=== PATIENT | female | born 1955 | race Caucasian/White ===

== ENCOUNTER 2021-11-25 12:36 | Outpatient (REF) | payer MEDICAID, SELFPAY ==
--- NOTE | ~2021-11-25 | XR_ITS ---
EXAMINATION: XR BOTH KNEES AP STANDING XR LEFT KNEE, 2 VIEWS CLINICAL INFORMATION: M25.569 - Pain in unspecified knee. COMPARISON: None. TECHNIQUE: Standing AP view of both knees and lateral and sunrise views of the left knee. FINDINGS: LEFT KNEE: Moderate medial compartment joint space narrowing with articular sclerosis, cortical irregularity, and marginal osteophytes. [id number] patellofemoral compartment osteoarthritis with joint space narrowing and marginal osteophytes. Lateral compartment appears relatively well preserved. No effusion. No fractures. Bone mineralization is normal. Soft tissues are unremarkable. RIGHT KNEE: Mild medial compartment osteoarthritis. Lateral compartment appears well preserved. No fracture or malalignment. Bone mineralization is normal. XR/XR knee standing BI IMPRESSION: Moderate left and mild right medial compartment osteoarthritis. [id number] patellofemoral compartment osteoarthritis in the left knee.
--- NOTE | ~2021-11-25 | XR_ITS ---
EXAMINATION: XR BOTH KNEES AP STANDING XR LEFT KNEE, 2 VIEWS CLINICAL INFORMATION: M25.569 - Pain in unspecified knee. COMPARISON: None. TECHNIQUE: Standing AP view of both knees and lateral and sunrise views of the left knee. FINDINGS: LEFT KNEE: Moderate medial compartment joint space narrowing with articular sclerosis, cortical irregularity, and marginal osteophytes. Plfw-et-nkyvigry patellofemoral compartment osteoarthritis with joint space narrowing and marginal osteophytes. Lateral compartment appears relatively well preserved. No effusion. No fractures. Bone mineralization is normal. Soft tissues are unremarkable. RIGHT KNEE: Mild medial compartment osteoarthritis. Lateral compartment appears well preserved. No fracture or malalignment. Bone mineralization is normal. XR/XR knee LT 2V IMPRESSION: Moderate left and mild right medial compartment osteoarthritis. Jcos-go-bfgohrlp patellofemoral compartment osteoarthritis in the left knee.
== END 2021-11-25 12:37 | disposition home or self-care (01) ==
LOC: HO.HOSX 12:36
PROVIDERS: Visit Provider Orthopaedic Surgery
DX: M17.0 Bilateral primary osteoarthritis of knee (principal); M32.9 Systemic lupus erythematosus, unspecified
CPT/HCPCS: 73560; 73565; 99202

== ENCOUNTER → 2022-01-27 14:28 | Outpatient (BNVA) | payer MEDICAID, SELFPAY | PROVIDERS: PCP Internal Medicine; Visit Provider Orthopaedic Surgery | DX: M17.12 Unilateral primary osteoarthritis, left knee (principal); M17.11 Unilateral primary osteoarthritis, right knee; M32.9 Systemic lupus erythematosus, unspecified | CPT/HCPCS: 99212; J1100 ==

== ENCOUNTER → 2022-02-19 12:50 | Outpatient (BNVA) | payer MEDICAID, SELFPAY | PROVIDERS: PCP Internal Medicine; Visit Provider Orthopaedic Surgery | DX: Z13.89 Encounter for screening for other disorder (principal) ==

== ENCOUNTER → 2022-03-13 13:54 | Outpatient (BNVA) | payer MEDICAID, SELFPAY | PROVIDERS: PCP Internal Medicine; Visit Provider Physician Assistant | DX: M17.12 Unilateral primary osteoarthritis, left knee (principal) | CPT/HCPCS: 20610; 99212 ==

== ENCOUNTER 2022-03-18 07:08 | Inpatient (IN) | payer MEDICAID, SELFPAY ==
[2022-03-04 12:32] VITALS: BP 144/83; PULSE 70; RESP 20; O2SAT 97; BMI 29.1
[2022-03-04 13:22] LABS: MANUAL DIFF FLAG NO
[2022-03-04 13:41] LABS: Basophils Percent Auto 0.8 % (0-2); Eosinophils Absolute Auto 0.1 X10*3/uL (0.0-0.4); Eosinophils Percent Auto 3.8 % (0-4); Hematocrit 38.1 % (37.0-47.0); Hemoglobin 12.8 g/dl (12.0-16.0); Lymphocytes Absolute Auto 0.9 X10*3/uL (1.2-4.9); Lymphocytes Percent Auto 35.2 % (20-40); Mean Corpuscular HGB Conc 33.6 g/dl (31.0-35.0); Mean Corpuscular Hemoglobin 30.1 pg (27.0-33.0); Mean Corpuscular Volume 89.6 fL (80.0-98.0); Mean Platelet Volume 9.4 fL (9.4-12.3); Monocytes Absolute Auto 0.3 X10*3/uL (0.1-1.2); Monocytes Percent Auto 11.9 % (2-11); Neutrophils Absolute Auto 1.3 x10*3/uL (2.0-8.3); Neutrophils Percent Auto 48.3 % (45-73); Platelet Count 191 X10*3/uL (160-400); Red Blood Count 4.25 X10*6/uL (4.20-5.50); White Blood Count 2.6 X10*3/uL (4.8-10.8)
[2022-03-04 15:00] LABS: MRSA Nasal PCR NEGATIVE (Negative); SA Nasal PCR POSITIVE (Negative)
[2022-03-04 15:24] LABS: Anion Gap 10 (12-20); Blood Urea Nitrogen 14 mg/dL (9-16); Calcium 9.5 mg/dL (8.4-10.2); Carbon Dioxide 29 mmol/L (22-29); Chloride 105 mmol/L (96-108); Creatinine Clr Calc Pharmacy 60.4; Estimated Glomerular Filt Rate 57; Glucose Random 82 mg/dL (60-115); Potassium 4.1 mmol/L (3.3-5.1); Sodium 140 mmol/L (135-145)
--- NOTE | 2022-03-17 09:12 | P.CONAN_ITS ---
Documented by User: Manda Mcwilliams NP 03/17/22 09:17 HPI - Anesthesia Eval Consult details Narrative: 66yo F for Left Knee Replacement Total PCP cleared Hydroxychloroquine for lupus Meloxicam daily PMFSH Active Problems Active Problems: All Active Problems (Updated 03/04/22 @ 12:24 by Brii Cunningham RN) Osteoarthritis of left knee (Acute) Osteoarthritis of right knee (Acute) Lupus (Acute) Past Medical History Medical History Acid reflux Anxiety and depression Hypertension Hypothyroidism Lupus PONV (postoperative nausea and vomiting) Surgical History Surgical History H/O breast surgery History of partial thyroidectomy Hx of foot surgery Social History Social History Are you a primary associate director career services to a significant other at home: No Do you presently have visiting nurse or other home services: No Patient Tobacco Use Status: Former Tobacco user Quit Date: Age 32 Tobacco use type: Cigarette Second Hand Smoke Exposure: No Use of substances other than those prescribed or required for medical reasons: No Have you been hit, kicked, punched, or otherwise hurt by someone within the past year? If so, by whom?: No Are you DNR?: No Advance Directives: No Advance Directives Information Provided: Yes () Advance Directives on File: No Recently lost weight without trying: No Eating poorly because of decreased appetite: No Nutrition Risks: No Nutritional Risk Patient : No Poor oral hygiene: No (intact teeth) Current occupational status: retired Meds Allergies Allergy/AdvReac Type Severity Reaction Status Date / Time Penicillins Allergy Intermediate Rash Verified 03/18/22 07:16 Home Medications Medication Instructions Recorded Confirmed Last Taken Type albuterol sulfate 90 mcg/actuation 2 puff inhalation Q4-6H PRN 11/25/21 03/18/22 02/15/22 History aerosol inhaler (ProAir HFA) Wheezing amitriptyline 10 mg tablet 10 mg PO DAILY 11/25/21 03/18/22 03/17/22 History hydroxychloroquine 200 mg tablet 200 mg PO DAILY 11/25/21 03/18/22 03/17/22 History levothyroxine 137 mcg tablet 137 mcg PO DAILY 11/25/21 03/18/22 03/18/22 00:30 History losartan 50 mg tablet 50 mg PO DAILY 11/25/21 03/18/22 03/18/22 00:30 History meloxicam 15 mg tablet 15 mg PO DAILY 11/25/21 03/18/22 03/13/22 History potassium chloride 10 mEq 20 meq PO DAILY 11/25/21 03/18/22 03/17/22 History capsule,extended release ropinirole 1 mg tablet 1 mg PO DAILY 11/25/21 02/19/22 03/17/22 History sertraline 100 mg tablet 100 mg PO DAILY 11/25/21 03/18/22 03/17/22 History aspirin 81 mg chewable tablet 81 mg PO DAILY 02/27/22 03/18/22 03/13/22 History fluticasone propionate 110 1 puff inhalation BID 02/27/22 03/18/22 02/15/22 History mcg/actuation HFA aerosol inhaler multivitamin with minerals (One 1 tab PO DAILY 02/27/22 03/18/22 03/17/22 History Daily Complete tablet) verapamil 180 mg tablet,extended 180 mg PO DAILY 02/27/22 03/17/22 History release omeprazole 40 mg capsule,delayed 1 cap PO DAILY 03/18/22 03/18/22 Unknown History release Exam Exam Date and Time: March 17, 2022911 Height,Weight and Vital Signs: Height 5 ft 5 in Weight 79.379 kg Last Vital Signs Pulse 70 03/04/22 12:32 Resp 20 03/04/22 12:32 BP 144/83 H 03/04/22 12:32 Pulse Ox 97 03/04/22 12:32 O2 Del Method 03/04/22 12:32 Pertinent Lab Results Pertinent Lab Results: Laboratory Tests 03/04/22 03/04/22 03/04/22 13:19 13:19 Unknown WBC 2.6 L RBC 4.25 Hgb 12.8 Hct 38.1 MCV 89.6 MCH 30.1 MCHC 33.6 RDW 13.0 Plt Count 191 MPV 9.4 Immature Gran % (Auto) 0.0 Neut % (Auto) 48.3 Lymph % (Auto) 35.2 Bacon % (Auto) 11.9 H Eos % (Auto) 3.8 Baso % (Auto) 0.8 Lymph # (Auto) 0.9 L Bacon # (Auto) 0.3 Eos # (Auto) 0.1 Baso # (Auto) 0.0 Abs Immat Gran (auto) 0.00 Absolute Neuts (auto) 1.3 L Absolute Nucleated RBC 0.000 Nucleated RBC % (auto) 0.0 Sodium 140 Potassium 4.1 Chloride 105 Carbon Dioxide 29 Anion Gap 10 L BUN 14 Creatinine 0.98 Estim Creat Clear Calc 60.4 Estimated GFR 57 Random Glucose 82 Calcium 9.5 Nasal Screen MRSA (PCR) NEGATIVE Nasal S. aureus Screen POSITIVE A Nasal MRSA/S.aureus Interp SEE NOTE Narrative Narrative: EKG 02/2022 SR Horizontal axis Assessment and Plan Assessment Anesthesia Assessment: Chart Reviewed Documented by User: Reymundo Moody MD 03/18/22 10:10 [facility] Past Medical History Medical History Acid reflux Anxiety and depression Hypertension Hypothyroidism Lupus PONV (postoperative nausea and vomiting) Family History Family history of problems with anesthesia: No Surgical History Surgical History H/O breast surgery History of partial thyroidectomy Hx of foot surgery History of Problems with Anesthesia: No Social History Social History Are you a primary associate director career services to a significant other at home: No Do you presently have visiting nurse or other home services: No Patient Tobacco Use Status: Former Tobacco user Quit Date: Age 32 Tobacco use type: Cigarette Second Hand Smoke Exposure: No Use of substances other than those prescribed or required for medical reasons: No Have you been hit, kicked, punched, or otherwise hurt by someone within the past year? If so, by whom?: No Are you DNR?: No Advance Directives: No Advance Directives Information Provided: Yes () Advance Directives on File: No Recently lost weight without trying: No Eating poorly because of decreased appetite: No Nutrition Risks: No Nutritional Risk Patient : No Poor oral hygiene: No (intact teeth) Current occupational status: retired Meds Allergies Allergy/AdvReac Type Severity Reaction Status Date / Time Penicillins Allergy Intermediate Rash Verified 03/18/22 07:16 Home Medications Medication Instructions Recorded Confirmed Last Taken Type albuterol sulfate 90 mcg/actuation 2 puff inhalation Q4-6H PRN 11/25/21 03/18/22 02/15/22 History aerosol inhaler (ProAir HFA) Wheezing amitriptyline 10 mg tablet 10 mg PO DAILY 11/25/21 03/18/22 03/17/22 History hydroxychloroquine 200 mg tablet 200 mg PO DAILY 11/25/21 03/18/22 03/17/22 Hi story levothyroxine 137 mcg tablet 137 mcg PO DAILY 11/25/21 03/18/22 03/18/22 00:30 History losartan 50 mg tablet 50 mg PO DAILY 11/25/21 03/18/22 03/18/22 00:30 History meloxicam 15 mg tablet 15 mg PO DAILY 11/25/21 03/18/22 03/13/22 History potassium chloride 10 mEq 20 meq PO DAILY 11/25/21 03/18/22 03/17/22 History capsule,extended release ropinirole 1 mg tablet 1 mg PO DAILY 11/25/21 02/19/22 03/17/22 History sertraline 100 mg tablet 100 mg PO DAILY 11/25/21 03/18/22 03/17/22 History aspirin 81 mg chewable tablet 81 mg PO DAILY 02/27/22 03/18/22 03/13/22 History fluticasone propionate 110 1 puff inhalation BID 02/27/22 03/18/22 02/15/22 History mcg/actuation HFA aerosol inhaler multivitamin with minerals (One 1 tab PO DAILY 02/27/22 03/18/22 03/17/22 Hist ory Daily Complete tablet) verapamil 180 mg tablet,extended 180 mg PO DAILY 02/27/22 03/17/22 History release omeprazole 40 mg capsule,delayed 1 cap PO DAILY 03/18/22 03/18/22 Unknown History release Exam Airway Mallampati Class: II TM Dist: >3cm Neck ROM: Full Loose/Missing/Broken Teeth: No Heart: rrr Lungs: cta Assessment and Plan Final Anesthetic Review Family History of Problems with Anesthesia: No History of Problems with Anesthesia: No NPO: Yes ASA Class: II Final Preanesthetic Review: No Changes in Pt Med Stat, Meds/Allgs Chart Reviewed, Consent Obtained/Reviewed and Anes Risks/Benef Reviewed Patient Risk: Intermediate Procedure Risk: Intermediate Anesthetic Plan Anesthetic Plan: MAC:, Spinal and Regional Block Disposition: Standard PACU
[2022-03-18] VITALS (15 sets, daily range): BP systolic 118–196; BP diastolic 73–97; PULSE 52–67; RESP 12–18; TEMP 36.2–37.1; O2SAT 96–100
--- NOTE | ~2022-03-18 | XR_ITS ---
EXAMINATION: XR KNEE, LEFT CLINICAL INFORMATION: Left total knee arthroplasty COMPARISON: Left knee radiographs 11/25/2021 TECHNIQUE: AP and crosstable lateral views left knee of the left knee. FINDINGS: Interval total knee arthroplasty. No periprosthetic fracture or dislocation. Expected postoperative soft tissue gas and anterior skin terese. Enthesophyte formation at the superior patellar pole noted. XR/XR knee LT 2V IMPRESSION: Status post total knee arthroplasty. No periprosthetic fracture or dislocation.
--- OUTSIDE RECORDS SUMMARY | 2022-03-18 07:14 | XMS_ITS | Continuity of Care Document ---
:1955 Author Organization [facility] Address [address] [place] [address]- Care Team Providers Name Role Phone Martine Song MD [id number] [address] [place] [id number] Attending Physician: Maci ALLAN, Leda Wiggins Admitting Physician: Maci ALLAN, Leda Wiggins Referring Physician: Heath Sanchez MD Allergies, Adverse Reactions, Alerts Substance Reaction Severity Status penicillin itch Severe Active rash Medications amitriptyline 10 mg oral tablet 10 mg, 1, tablet, By Mouth, Daily at bedtime, # 180 tablet, Refills 0, Maintenance, 05/17/19 8:35:00EDT Start Date: 05/17/19 Status: OrderedamLODIPine 5 mg oral tablet 5 mg, 1, tablet, By Mouth, Daily, # 90 tablet, Refills 0, Maintenance, 05/17/19 8:36:00 EDT Start Date: 05/17/19 Status: Orderedaspirin 81 mg oral delayed release tablet 81 mg, 1, tablet, By Mouth, Daily, # 30 tablet, Refills 0, Maintenance, 05/17/19 8:36:00 EDT Start Date: 05/17/19 Status: Orderedatorvastatin 20 mg oral tablet 1 tablet = 20 mg, By Mouth, Daily, # 30 tablet, 0 Refills, Maintenance, 05/17/19 8:37:00 EDT, Tablet Start Date: 05/17/19 Status: Orderedcitalopram 40 mg oral tablet 40 mg, 1, tablet, By Mouth, Daily, # 30 tablet, Refills 0, Maintenance, 05/17/19 8:38:00 EDT Start Date: 05/17/19 Status: OrderedHydrochlorothiazide 25 mg / Spironolactone 25 mg Tablet 1 tablet, By Mouth, Daily, 0 Refills, Maintenance, 05/17/19 8:39:00 EDT, Tablet Start Date: 05/17/19 Status: Orderedhydroxychloroquine 200 mg oral tablet 200 mg, 1, tablet, By Mouth, Daily, # 180 tablet, Refills 0, Maintenance, 05/17/19 8:39:00 EDT Start Date: 05/17/19 Status: OrderedLevoxyl 0.137 mg oral tablet See Instructions, 1 tablet By Mouth Daily except thursday take 1.5 tablet by mouth daily, 0 Refills, Maintenance, 05/17/19 8:40:00 EDT, Tablet Start Date: 05/17/19 Status: OrderedLisinopril = 5 mg, By Mouth, Daily, 0 Refills, Maintenance, 05/19/14 11:51:19 EDT Start Date: 05/19/14 Status: OrderedLysine = 500 mg, By Mouth, 2 times a day, 0 Refills, Maintenance, 05/19/14 11:51:25 EDT Start Date: 05/19/14 Status: Orderedmeloxicam 15 mg oral tablet 1 tablet = 15 mg, By Mouth, Daily, # 30 tablet, 0 Refills, Maintenance, 05/17/19 8:42:00 EDT, Tablet Start Date: 05/17/19 Status: OrderedMiraLax oral powder for reconstitution = 17 Gm, By Mouth, Daily, PRN Constipation, dissolve in water before taking, # 255 Gm, 0 Refills, Maintenance, 05/17/19 8:42:00 EDT, REC Powder Start Date: 05/17/19 Status: Orderedomeprazole 20 mg oral delayed release tablet 1 tablet = 20 mg, By Mouth, Daily at bedtime, # 90 tablet, 0 Refills, Maintenance, 05/17/19 8:44:00 EDT, CR Tablet Start Date: 05/17/19 Status: Orderedpotassium chloride 10 mEq oral capsule, extended release 1 capsule = 10 mEq, By Mouth, 2 times a day, # 60 capsule, 0 Refills, Maintenance, 05/17/19 8:43:00 EDT, CR Capsule Start Date: 05/17/19 Status: OrderedrOPINIRole 1 mg oral tablet 1 tablet = 1 mg, By Mouth, Daily at bedtime, # 270 tablet, 0 Refills, Maintenance, 05/17/19 8:44:00 EDT, Tablet Start Date: 05/17/19 Status: Orderedverapamil 100 mg oral capsule, extended release 1 capsule = 100 mg, By Mouth, Daily at bedtime, # 30 capsule, 0 Refills, Maintenance, 05/17/19 8:43:00 EDT, CR Capsule Start Date: 05/17/19 Status: Ordered Problem List Condition Effective Dates Status Health Status Informant Atrophic vaginitis(Confirmed) Active Dyspareunia(Confirmed) Active Hypertension(Confirmed) Active Hypothyroidism(Confirmed) Active Change in bowel function(Confirmed) 05/22/14 Active Overweight(Confirmed) Active Raynaud's syndrome(Confirmed) Active Sjogrens syndrome(Confirmed) Active SLE - Systemic lupus Active erythematosus(Confirmed) Varicella(Confirmed) Active Social History Social History Type Response Smoking Status Former smoker; Other: Quit 4 2 yrs ago; entered on: 05/19/14 Sex
--- OUTSIDE RECORDS SUMMARY | 2022-03-18 07:14 | XMS_ITS | Continuity of Care Document ---
:1955 Author Organization [facility] Address [address] [place] [id number]- Care Team Providers Name Role Phone Martine Song MD Primary Care Physician Encounter [facility] Date(s): 07/04/20 - 08/03/20 [facility] [address] [place] [id number] Attending Physician: Javan Ernst Admitting Physician: AdmtrJavan Referring Physician: Admtr, Javan Allergies, Adverse Reactions, Alerts Substance Reaction Severity [...]
--- OUTSIDE RECORDS SUMMARY | 2022-03-18 07:14 | XMS_ITS | Continuity of Care Document ---
:1955 Author Organization [facility] pt Address [address] [place] [address]- Care Team Providers Name Role Phone Martine Song MD Primary Care Physician Encounter [facility] Date(s): 12/18/21 - 12/25/21 [facility] [address] [place] [address]- Attending Physician: Not on Staff, Attending MD Referring Physician: Martine Song MD Allergies, Adverse Reactions, Alerts Substance Reaction Severity Status penicillin itch Severe Active rash Medications aspirin 81 mg oral delayed release tablet 81 mg, 1, tablet, By Mouth, Daily, # 30 tablet, Refills 0, Maintenance, 05/17/19 8:36:00 EDT Start Date: 05/17/19 Status: OrderedEstring 2 mg vaginal ring 1 each = 2 mg, Vaginally, Every 3 months, # 1 each, 0 Refills, Maintenance, 10/15/21 15:05:00 EDT, [facility]/pharmacy #[id number], Partial fill upon patient request if the prescription is for a schedule II opioid drug., 165, cm, 10/15/21 14:20:00 EDT, Height, 78.... Start Date: 10/15/21 Status: Orderedhydroxychloroquine 200 mg oral tablet 200 mg, 1, tablet, By Mouth, Daily, # 180 tablet, Refills 0, Maintenance, 05/17/19 8:39:00 EDT Start Date: 05/17/19 Status: OrderedLevoxyl 0.137 mg oral tablet See Instructions, 1 tablet By Mouth Daily except thursday take 1.5 tablet by mouth daily, 0 Refills, Maintenance, 05/17/19 8:40:00 EDT, Tablet Start Date: 05/17/19 Status: OrderedLosartan By Mouth, Daily, 0 Refills, Maintenance, 10/15/21 14:25:00 EDT, Partial fill upon patient request ifthe prescription is for a schedule II opioid drug. Start Date: 10/15/21 Status: Orderedomeprazole 20 mg oral delayed release tablet 1 tablet = 20 mg, By Mouth, Daily at bedtime, # 90 tablet, 0 Refills, Maintenance, 05/17/19 8:44:00 EDT, CR Tablet Start Date: 05/17/19 Status: OrderedrOPINIRole 1 mg oral tablet 1 tablet = 1 mg, By Mouth, Daily at bedtime, # 270 tablet, 0 Refills, Maintenance, 05/17/19 8:44:00 EDT, Tablet Start Date: 05/17/19 Status: OrderedSertraline By Mouth, Daily, 0 Refills, Maintenance, 10/15/21 14:28:00 EDT, Partial fill upon patient request ifthe prescription is for a schedule II opioid drug. Start Date: 10/15/21 Status: Ordered Problem List Condition Confirmation Course Effective Dates Status Health I nformant Status Atrophic vaginitis Confirmed Active Dyspareunia Confirmed Active Hypertension Confirmed Active Hypothyroidism Confirmed Active Change in bowel Confirmed 05/22/14 Active function Overweight Confirmed Active Raynaud's syndrome Confirmed Active Sjogrens syndrome Confirmed Active SLE - Systemic lupus Confirmed Active erythematosus Varicella Confirmed Active Vital Signs Most recent to oldest [Reference Range]: 1 Height 165 cm (12/18/21 5:39 PM) Oxygen Saturation [94-100 %] 98 % (12/18/21 5:39 PM) Pulse Rate [55-90 bpm] 73 bpm (12/18/21 5:39 PM) Blood Pressure [90-138/55-84 mm Hg] 151/90 mm Hg *H* (12/18/21 5:39 PM) Respiratory Rate [16-30 br/min] 16 br/min (12/18/21 5:39 PM) Temperature [96.8-100.4 DegF] 97.8 DegF (12/18/21 5:39 PM) Mode of Delivery (Oxygen) Room air (12/18/21 5:39 PM) Blood pressure sites Arm, left (12/18/21 5:39 PM) Temperature Route Temporal (12/18/21 5:39 PM) Social History Social History Type Response Smoking Status Former smoker; Other: Quit 4 2 yrs ago; entered on: 05/19/14 Sex Patient Care team information PersonnelName: Martine Song MD Address: Address: [address] [place] [id number]
--- OUTSIDE RECORDS SUMMARY | 2022-03-18 07:14 | XMS_ITS | Continuity of Care Document ---
:1955 Author Organization [facility] Address [address] [place] [address]- Care Team Providers Name Role Phone Martine Song MD [id number] - 10/06/21 [facility] [address] [place] [address]- Attending Physician: Tomasa Leyva MD Referring Physician: Martine Song MD Allergies, [...]
--- OUTSIDE RECORDS SUMMARY | 2022-03-18 07:14 | XMS_ITS | Continuity of Care Document ---
:1955 Author Organization [facility] Address [address] [place] [address]- Care Team Providers Name Role Phone Martine Song MD Primary Care Physician Encounter [facility] Date(s): 11/05/21 - 11/12/21 [facility] [address] [place] [id number] Attending Physician: Not on Staff, Attending MD Allergies, Adverse Reactions, Alerts Substance Reaction [...] each, 0 Refills, Maintenance, 10/15/21 15:05:00 EDT, [facility]pharmacy #[id number], Partial fill upon patient request if [...] Date: 10/15/21 Status: Ordered Problem List Condition Effective Dates Status Health Status Informant Atrophic vaginitis(Confirmed) Active Dyspareunia(Confirmed) Active Hypertension(Confirmed) Active Hypothyroidism(Confirmed) Active Change in bowel function(Confirmed) 05/22/14 Active Overweight(Confirmed) Active Raynaud's syndrome(Confirmed) Active Sjogrens syndrome(Confirmed) Active SLE - Systemic lupus Active erythematosus(Confirmed) Varicella(Confirmed) Active Social History Social History Type Response Smoking Status Former smoker; Other: Quit 4 2 yrs ago; entered on: 05/19/14 Sex Care Team PersonnelName: Martine Song MD Address: [address] [place] [id number]
--- OUTSIDE RECORDS SUMMARY | 2022-03-18 07:14 | XMS_ITS | Continuity of Care Document ---
:1955 Author Organization [facility] Address [address] [address]- Care Team Providers Name Role Phone Martine Song MD Primary Care Phys[id number] Date[facility]s): 10/23/21 - 11/22/[address] [id number] Allergies, Adverse Reactions, Alerts Substance Reaction Severity [...] each, 0 Refills, Maintenance, 10/15/21 15:05:00 EDT, [facility]/pharmacy #[id number], Partial fill upon patient request if [...] Care Team PersonnelName: Martine Song MD Address: [address] [place] [id number]-
--- OUTSIDE RECORDS SUMMARY | 2022-03-18 07:14 | XMS_ITS | Continuity of Care Document ---
:1955 Author Organization [facility] Address [address] [place] [id number]- Care Team Providers Name Role Phone Martine Song MD Primary Care Physician Encounter [facility] Date(s): 05/03/20 - 06/02/[address] [address]- Attending Physician: Javan Ernst Admitting Physician: AdmtrJavan Referring Physician: AdmtrJavan Allergies, Adverse Reactions, Alerts Substance Reaction Severity [...]
--- OUTSIDE RECORDS SUMMARY | 2022-03-18 07:14 | XMS_ITS | Continuity of Care Document ---
:1955 Author Organization [facility] n Address [address] [place] [id number]- Care Team Providers Name Role Phone Martine Song MD Primary Care Physician Encounter [facility] Date(s): 02/19/21 - 03/21/21 [facility] [address] [address]- Attending Physician: Javan Ernst Admitting Physician: Javan Ernst Referring Physician: AdmtrJavan Allergies, Adverse Reactions, Alerts [...]
--- OUTSIDE RECORDS SUMMARY | 2022-03-18 07:14 | XMS_ITS | Continuity of Care Document ---
:1955 Author Organization [facility] Address [address] [place] [address], [address] [place] [phone]- Care Team Providers Name Role Phone Martine Song MD Primary Care Physician [id number] Date(s): 11/06/21 - 12/06/21 [facility] [address] [place] [address], [address] [place] [id number] Allergies, Adverse Reactions, Alerts Substance Reaction [...] 0 Refills, Maintenance, 10/15/21 15:05:00 EDT, [facility]/pharmacy #[id number], Partial fill upon patient request if [...] lupus Confirmed Active erythematosus Varicella Confirmed Active Social History Social History Type Response Smoking Status Former smoker; Other: Quit 4 2 yrs ago; entered on: 05/19/14 Sex Patient Care team information PersonnelName: Martine Song MD Address: Address: [address] [place] [address], [place] [address]
--- OUTSIDE RECORDS SUMMARY | 2022-03-18 07:14 | XMS_ITS | Continuity of Care Document ---
:1955 Author Organization [facility] Address [address] [place] [address]- Care Team Providers Name Role Phone Duncan LONDONO, Martine Primary Care Physician Encounter [facility] Date(s): 09/06/21 - 10/06/21 [facility] [address] [place], [place] [address] Allergies, Adverse Reactions, Alerts Substance Reaction [...]
--- OUTSIDE RECORDS SUMMARY | 2022-03-18 07:14 | XMS_ITS | Continuity of Care Document ---
:1955 Author Organization [facility] Address [address] [place] [address]- Care Team Providers Name Role Phone Martine Song MD Primary Care Physician En[place] [facility] [facility] [id number] Date(s): 12/25/21 - 01/24/22 [facility] [address], [place] [address] Attending Physician: Javan Ernst Admitting Physician: Javan [...] each, 0 Refills, Maintenance, 10/15/21 15:05:00 EDT, [facility]/pharmacy #[id number], Partial fill upon patient request if [...] 2 yrs ago; entered on: 05/19/14 Sex Note Event Display: Non BH Lab Results Authored Date: Event Display: MM Mammogram, Non- BH Authored Date: Event Display: Non BH Lab Results Authored Date: Event Display: Non BH Lab Results Authored Date: Patient Care team information Care Team PersonnelName: Martine Song MD Position: [facility] General Pediatrics MD Member Role: PCP Address: Address: [address] [place] [address]- Care Team Related PersonsName: TATO BECERRAY Address: home [address] [place] [id number]
--- OUTSIDE RECORDS SUMMARY | 2022-03-18 07:14 | XMS_ITS | Continuity of Care Document ---
:1955 Author Organization [facility] Address [address] [place] [address]- Care Team Providers Name Role Phone Martine Song MD Primary Care Physician [facility] [id number] Date(s): 05/04/19 - 05/14/19 [id number] [address] [place] Attending Physician: Javan Ernst Admitting Physician: Javan Ernst Referring Physician: Javan Ernst Allergies, Adverse Reactions, Alerts Substance Reaction Severity Status penicillin itch Severe Active rash Medications levothyroxine 0.112 mg oral tablet 1 tablet = 112 mcg, By Mouth, Daily, # 30 tablet, 0 Refills, Maintenance, 09/01/14 10:07:41, Tablet Start Date: 09/01/14 Status: OrderedLisinopril By Mouth, Daily, 0 Refills, Maintenance, 05/19/14 11:51:19 Start Date: 05/19/14 Status: OrderedLysine = 1,000 mg, By Mouth, Daily, 0 Refills, Maintenance, 05/19/14 11:51:25 Start Date: 05/19/14 Status: OrderedPlaquenil Sulfate 200 mg oral tablet 1 tablet = 200 mg, By Mouth, 2 times a day, 0 Refills, Maintenance Start Date: 03/21/11 Status: OrderedRestasis 0.05% ophthalmic emulsion 1 drops, Eyes, Both, Every 12 hours, 0 Refills, Maintenance, 05/19/14 11:51:41 Start Date: 05/19/14 Status: OrderedVagifem 10 mcg vaginal tablet See Instructions, vaginally at bedtime twice a week, # 25 tablet, 3 Refills, Maintenance, 01/23/15 11:48:11, vaginally at bedtime twice a week Start Date: 01/23/15 Status: Ordered Problem List Condition Effective Dates [...]
--- OUTSIDE RECORDS SUMMARY | 2022-03-18 07:14 | XMS_ITS | Continuity of Care Document ---
:1955 Author Organization [facility] Address [address] [place] [address]- Care Team Providers Name Role Phone Martine Song MD Primary Care Physician Encounter [facility] [place] Date(s): 03/08/21 - 04/07/21 [facility] [address] [place] [address]- Attending Physician: Javan Ernst Admitting Physician: Javan [...]
--- OUTSIDE RECORDS SUMMARY | 2022-03-18 07:14 | XMS_ITS | Continuity of Care Document ---
:1955 Author Organization [facility] Address [address] [place] [address]- Care Team Providers Name Role Phone Martine Song MD Primary Care Physician [place] [facility] [place] 01/15/21 - 03/16/[address] [address]- Attending Physician: Heath Sanchez MD Admitting Physician: Heath Sanchez MD Referring Physician: Heath Sanchez MD Allergies, Adverse [...]
--- OUTSIDE RECORDS SUMMARY | 2022-03-18 07:14 | XMS_ITS | Continuity of Care Document ---
:1955 Author Organization [facility] Address [address] [place] [address]- Care Team Providers Name Role Phone Martine Song MD Primary Care Physician [place] [facility] [place] 05/17/19 - 05/27/[address] [address]- [facility] Attending Physician: Javan Ernst Admitting Physician: Javan [...]
--- OUTSIDE RECORDS SUMMARY | 2022-03-18 07:14 | XMS_ITS | Continuity of Care Document ---
:1955 Author Organization [facility] Address [address] [place] [address]- Care Team Providers Name Role Phone Duncan LONDONO, Martine Primary Care Physician Encounter [facility] [place] Date(s): 11/05/21 - 12/05/21 [facility] [address] [place] [address] Attending Physician: Javan Ernst Admitting Physician: Javan Ernst Referring Physician: Admtr, ArAndrey Allergies, Adverse Reactions, Alerts Substance Reaction Severity [...] information PersonnelName: Martine Song MD Address: Address: [address] [place] [address]-
--- OUTSIDE RECORDS SUMMARY | 2022-03-18 07:14 | XMS_ITS | Continuity of Care Document ---
:1955 Author Organization [facility] Address [address] [place] [address]- Care Team Providers Name Role Phone Martine Song MD Primary Care Physician Encounter [facility] [place] Date(s): 12/23/21 - 01/22/22 [facility] [address] [place], [place] [address] Allergies, Adverse Reactions, Alerts Substance Reaction Severity [...] each, 0 Refills, Maintenance, 10/15/21 15:05:00 EDT, [facility]/pharmacy #[id number], Partial fill upon [...] on: 05/19/14 Sex Patient Care team information Care Team PersonnelName: Martine Song MD Position: [facility] General Pediatrics MD Member Role: PCP Address: Address: [address] [place] [address]- Care Team Related PersonsName: ALEJANDRO BECERRA Address: home [address] [place] [address]
--- OUTSIDE RECORDS SUMMARY | 2022-03-18 07:14 | XMS_ITS | Continuity of Care Document ---
:1955 Author Organization [facility] Address [address] [place] [address]- Care Team Providers Name Role Phone Martine Song MD Primary Care Physician [id number] Date(s[facility] 10/15/21 - 10/22/21 [facility] [address] [place], [place] [address] Attending Physician: Amparo Potts MD Allergies, Adverse Reactions, Alerts Substance Reaction [...] - Systemic lupus Active erythematosus(Confirmed) Varicella(Confirmed) Active Vital Signs Most recent to oldest [Reference Range]: 1 Height 165 cm (10/15/21 2:20 PM) Weight 78.7 kg (10/15/21 2:20 PM) Body Mass Index [18.5-24.99] 28.91 *H* (10/15/21 2:20 PM) Blood Pressure [90-138/55-84 mm Hg] 140/80 mm Hg *H* (10/15/21 2:20 PM) Blood pressure sites Arm, right (10/15/21 2:20 PM) Dry Weight 78.7 kg (10/15/21 2:20 PM) Weight Obtained Via Standing scale (10/15/21 2:20 PM) Dry Weight Obtained Via Standing scale (10/15/21 2:20 PM) Social History Social History Type Response Smoking Status Former smoker; Other: Quit 4 2 yrs ago; entered on: 05/19/14 Sex
--- OUTSIDE RECORDS SUMMARY | 2022-03-18 07:14 | XMS_ITS | Continuity of Care Document ---
:1955 Author Organization [facility] Address [address] [address]- Care Team Providers Name Role Phone Martine Sogn MD Primary Care Physician Encounter [facility] [place] Date(s): 07/02/20 - 08/01/20 [facility] [address] [address]- Attending Physician: Javan Ernst Admitting Physician: AdmtrJavan [...]
--- OUTSIDE RECORDS SUMMARY | 2022-03-18 07:14 | XMS_ITS | Continuity of Care Document ---
:1955 Author Organization [facility] Address [address] [place] [address]- Care Team Providers Name Role Phone Martine Song MD Primary Care Physician Encounter [facility] [place] Date(s): 03/08/19 - 06/29/[address] [address]- [facility] Attending Physician: Heath Sanchez MD Referring Physician: Heath [...]
--- OUTSIDE RECORDS SUMMARY | 2022-03-18 07:14 | XMS_ITS | Continuity of Care Document ---
:1955 Author Organization [facility] Address [address] [place] [address]- Care Team Providers Name Role Phone Martine Song MD Primary Care Physician Encounter [facility] [place] Date(s): 03/08/21 - 03/15/21 [facility] [address] [place] [address]- Attending Physician: Danis Puente DO Referring Physician: Martine Song MD Allergies, Adverse [...]
--- OUTSIDE RECORDS SUMMARY | 2022-03-18 07:14 | XMS_ITS | Continuity of Care Document ---
:1955 Author Organization [facility] Address [address] [place] [address]- Care Team Providers Name Role Phone Martine Song MD Primary Care Physician Encounter [facility] [place] Date(s): 04/30/20 - 05/30/20 [facility] [address] [place] [address] Attending Physician: Javan Ernst Admitting Physician: AdmtrJavan [...]
--- OUTSIDE RECORDS SUMMARY | 2022-03-18 07:14 | XMS_ITS | Continuity of Care Document ---
:1955 Author Organization [facility] Address [address] [place] [address]- Care Team Providers Name Role Phone Martine Song MD Primary Care Physician Encounter [facility] [place] Date(s): 01/14/21 - 03/15/[address] [address]- Attending Physician: Heath Sanchez MD Referring Physician: [...]
--- OUTSIDE RECORDS SUMMARY | 2022-03-18 07:15 | XMS_ITS | Continuity of Care Document ---
:1955 Author Organization [facility] Address [address] [place] [address]- Care Team Providers Name Role Phone Martine Song MD Primary Care Physician Encounter [facility] [place] Date(s): 02/14/21 - 03/16/[address] [address]- Attending Physician: Admlore, Javan Admitting Physician: AdmtrJavan Referring Physician: Admtr, ArAndrey Allergies, Adverse Reactions, [...]
--- OUTSIDE RECORDS SUMMARY | 2022-03-18 07:15 | XMS_ITS | Continuity of Care Document ---
:1955 Author Organization [facility] Address [address] [place] [address]- Care Team Providers Name Role Phone Martine Song MD Primary Care Physician Encounter [facility] [place] Date(s): 01/22/21 - 01/29/21 [id number], [place] [address]- Attending Physician: Heath Sanchez MD Admitting Physician: [...]
--- OUTSIDE RECORDS SUMMARY | 2022-03-18 07:15 | XMS_ITS | Continuity of Care Document ---
:1955 Author Organization [facility] Address [address] [place] [address]- Care Team Providers Name Role Phone Martine Song MD Primary Care Physician Encounter [facility] [place] Date(s): 01/19/21 - 03/20/21 [facility] [address] [place] [address] Attending Physician: Alice Altman MD Admitting Physician: Alice Altman MD Referring Physician: Heath Sanchez MD Allergies, [...]
[2022-03-18 07:36] LABS: Hematocrit 37.9 % (37.0-47.0); Hemoglobin 12.9 g/dl (12.0-16.0)
[2022-03-18] MEDS: Lactated Ringers 1,000 ML 100 ML IVCONT ×2 (08:05→14:04)
[2022-03-18 08:07] LABS: COVID-19 Test Negative (Negative); IDNOW Serial# BCCEAD1C
--- NOTE | 2022-03-18 09:10 | MHC.SHP ---
Pre-Procedural Eval Section A Date of Service: 03/18/22 The patient is an INPATIENT: No Changes since office visit: No Cold of Flu in the past 2 weeks, No New Medical Problems, No Changes in Medication and No Patient answered all questions The History & Physical has been completed within 30 days and I have reviewed it.: Yes Section B Chief Complaint: LT TKA Allergies: Allergies Allergy/AdvReac Type Severity Reaction Status Date / Time Penicillins Allergy Intermediate Rash Verified 03/18/22 07:16 Plan I have reviewed the history and physical and performed a pertinent physical examination on my patient. No changes have occurred unless specified. Time Spent With Patient Time: Total time managing care of this patient today ____ minutes.
--- NOTE | 2022-03-18 10:53 | PM.OP ---
Brief Operative Note Date of Service: 03/18/22 Pre-op diagnosis: Left knee OA Post-op diagnosis: same Procedure: Left TKA Implants: Lucille Triathlon press fit cruciate retaining Surgeon: Steve Castro MD Anesthesia: regional and spinal Was an Ship Boat Or Barge Mate used for this Procedure?: Yes Ship Boat Or Barge Mate: Melissa Stubbs Estimated blood loss (mL): 150 IV fluids (mL): 1,000 Pathology: other Condition: stable Disposition: PACU
--- NOTE | 2022-03-18 10:58 | W.PM.OPN ---
Operative Note Operative Note Date of Service: 03/18/22 Narrative: Date of Service: 03/18/22 Pre-op diagnosis: Left knee OA Post-op diagnosis: same Procedure: Left TKA Implants: Lucille Triathlon press fit cruciate retaining 05/10/9cr/32a Surgeon: Steve Castro MD Anesthesia: regional and spinal Was an Plate And Frame Filter Operator used for this Procedure?: Yes Plate And Frame Filter Operator: Melissa Stubbs Estimated blood loss (mL): 150 IV fluids (mL): 1,000 Pathology: other Condition: stable Disposition: PACU Procedure in detail: The patient was brought to the operating room and prepped and draped in standard sterile fashion. A time-out was called to identify proper site proper procedure proper surgeon and IV antibiotics were administered. 1 g of IV tranexamic acid was administered. I began by making a midline incision to the retinaculum and performed a medial parapatellar arthrotomy. The patella was translated laterally and the knee was flexed up. The medial compartment was eburnated . I performed a small medial peel and resected the infrapatellar fat pad. Kandis's line was then used to drill my intramedullary femoral guide and my distal femur cut of 11 mm( 5 deg flexion contracture) was made in 5 degrees of valgus while protecting the soft tissues. I then measured a # 3 femur and placed my cutting guide in 3 deg ER and made my anterior posterior and chamfer cuts protecting the soft tissues at all times. Once I was satisfied with my cuts I turned my attention to the tibia. I removed the meniscus medially and laterally and , using an external cutting guide, in line with the tibial crest and the third ray, I made my distal tibial cut in 3 deg slope of while protecting the PCL the posterior soft tissues at all times. An extension block was used to confirm appropriate amount of bony resection. I then sized a #4 tibia and once I was satisfied that there was complete tibial coverage I placed my trial and with the trial femur in place took the knee through range of motion. I was satisfied with the extension and flexion as well as the stability and balance at 0, 30 and 90 degrees. I then turned my attention to the patella where I removed 1 cm from the undersurface of the patella and then trialed a 32a patellar button. Again the knee was taken through range of motion I was satisfied with the tracking. I then returned to the femur and drilled my femoral lug holes and prepared the tibia. A femoral bone plug was placed and the knee was irrigated copiously. I then press fit the patella, tibia and femur in standard fashion. I trialed different inserts until I selected a #9 insert. The final insert was placed and a 3 minutes iodine soak with local TXA was performed. A Werewolf cautery wand was used to maintain hemostasis over the capsule and meniscal beds, the gutters and peripatellar soft tissues. The knee was then closed with a running Quill suture, a 3 0 Vicryl and terese on the skin. Patient was then placed in sterile dressing and brought to recovery room in stable condition there were no known complications.
[2022-03-18] MEDS: Acetaminophen 325 MG TABLET 650 MG PO (14:09)
[2022-03-18] MEDS: oxyCODONE HCl Immed Release 5 MG TABLET PO (14:10)
[2022-03-18] MEDS: ceFAZolin Sodium/Dextrose,Iso 2 GM/50 ML PIGGYBACK IV (15:37)
--- NOTE | 2022-03-18 18:45 | PHA.MEDREC ---
Pharmacy Consult ? Medication Reconciliation Pharmacy has reviewed the medication reconciliation completed by nursing. Patient reported she is on ropinoril daily even though there is no recent claim. Patient unsure sure of verapamil, and there is no fill in over a year so I removed from list. Claire Arana, PharmD
[2022-03-18] MEDS: Fluticasone Propionate 100 MCG BLST.W.DEV 1 PUFF INHALE (19:26)
[2022-03-18] MEDS: Celecoxib 200 MG CAPSULE PO (20:09)
[2022-03-18] MEDS: Docusate Sodium 100 MG CAPSULE PO (20:10)
[2022-03-18] MEDS: oxyCODONE HCl ER 10 MG TAB.ER.12H PO (20:10)
[2022-03-19] VITALS (11 sets, daily range): BP systolic 156–224; BP diastolic 85–118; PULSE 66–97; RESP 16–18; TEMP 36.5–36.8; O2SAT 94–98
[2022-03-19] MEDS: HYDROmorphone HCl 0.5 MG/0.5 ML SYRINGE 0.25 MG IVPUSH ×4 (00:03→15:50)
[2022-03-19] MEDS: Lactated Ringers 1,000 ML 100 ML IVCONT ×2 (00:03→08:39)
[2022-03-19] MEDS: oxyCODONE HCl Immed Release 5 MG TABLET PO ×4 (01:58→18:48)
[2022-03-19] MEDS: Omeprazole 40 MG CAPSULE.DR PO (04:49)
[2022-03-19] MEDS: Levothyroxine Sodium 112 MCG, Levothyroxine Sodium 25 MCG 137 MCG PO (04:49)
[2022-03-19] MEDS: Acetaminophen 325 MG TABLET 650 MG PO (05:48)
--- NOTE | 2022-03-19 06:20 | P.PNOP_ITS ---
Subjective Subjective Date of Service: 03/19/22 Interval history: POD 1 s/p LT TKA No overnight events resting in bed denies cp/sob/palpitations Physical Exam Vital Signs: Vital Signs: Last Vital Signs Temp 98.3 F 03/19/22 03:07 Pulse 66 03/19/22 03:07 Resp 16 03/19/22 03:07 BP 156/85 H 03/19/22 03:07 Pulse Ox 96 03/19/22 03:07 O2 Del Method 03/19/22 03:07 BMI result Body Mass Index 29.1 Const: General: cooperative, healthy appearing and no acute distress Resp: Effort & Inspection: normal respiratory effort and able to speak in complete sentences Cardio: Rate: regular rate Peripheral pulses: Peripheral pulses 2+ throughout GI: Palpation (GI): Soft to palpation Skin: General skin exam: no rashes or lesions noted Extrem: Other: incision clean dry and intact. Joyce intact. No erythema or joint effusion. Calf supple nontender. Neurovascularly intact. Procedures Date of Service Date of Service: 03/19/22 Progress Note: A&P Assessment and plan (1) Status post total left knee replacement: Status: Acute Assessment and Plan: * Continue pain mgmnt * Begin Aspirin for dvt ppx * begin PT for LT TKA * Dispo planning-Pending PT eval, pain mgmnt Time Spent With Patient Time: Total time managing care of this patient today ____ minutes. Quality Stroke Does the patient have a stroke diagnosis?: No VTE Prior VTE?: No VTE Risk Level:: Surgical - very high VTE Device Contraindication: N/A - Device Ordered VTE Drug Contraindication: N/A - Med Ordered
[2022-03-19 07:04] LABS: MANUAL DIFF FLAG NO
[2022-03-19 07:11] LABS: Basophils Percent Auto 0.2 % (0-2); Eosinophils Absolute Auto 0.1 X10*3/uL (0.0-0.4); Eosinophils Percent Auto 1.8 % (0-4); Hematocrit 34.1 % (37.0-47.0); Hemoglobin 11.5 g/dl (12.0-16.0); Imm Gran Abs Auto 0.02 X10*3/uL (0.00-0.03); Imm Gran Pct Auto 0.4 % (0.0-0.4); Lymphocytes Absolute Auto 0.6 X10*3/uL (1.2-4.9); Lymphocytes Percent Auto 12.6 % (20-40); Mean Corpuscular HGB Conc 33.7 g/dl (31.0-35.0); Mean Corpuscular Hemoglobin 29.9 pg (27.0-33.0); Mean Corpuscular Volume 88.6 fL (80.0-98.0); Mean Platelet Volume 9.5 fL (9.4-12.3); Monocytes Absolute Auto 0.5 X10*3/uL (0.1-1.2); Neutrophils Absolute Auto 3.7 x10*3/uL (2.0-8.3); Platelet Count 173 X10*3/uL (160-400); Red Blood Count 3.85 X10*6/uL (4.20-5.50); Red Cell Distribution Width 12.7 % (11.0-16.0); White Blood Count 4.9 X10*3/uL (4.8-10.8)
[2022-03-19 07:48] LABS: Anion Gap 13 (12-20); Blood Urea Nitrogen 13 mg/dL (9-16); Calcium 8.4 mg/dL (8.4-10.2); Carbon Dioxide 24 mmol/L (22-29); Chloride 103 mmol/L (96-108); Creatinine Clr Calc Pharmacy 68.8; Estimated Glomerular Filt Rate > 60; Glucose Fasting 129 mg/dL (60-99); Potassium 3.6 mmol/L (3.3-5.1); Sodium 136 mmol/L (135-145)
[2022-03-19] MEDS: Amitriptyline HCl 10 MG TABLET PO (08:01)
[2022-03-19] MEDS: Celecoxib 200 MG CAPSULE PO ×2 (08:02→20:14)
[2022-03-19] MEDS: Sertraline HCL 100 MG TABLET PO (08:03)
[2022-03-19] MEDS: Docusate Sodium 100 MG CAPSULE PO ×2 (08:03→20:14)
[2022-03-19] MEDS: oxyCODONE HCl ER 10 MG TAB.ER.12H PO ×2 (08:03→20:14)
[2022-03-19] MEDS: Fluticasone Propionate 100 MCG BLST.W.DEV 1 PUFF INHALE ×2 (08:36→19:17)
[2022-03-19] MEDS: Aspirin 325 MG TABLET PO ×2 (08:37→20:13)
[2022-03-19] MEDS: ondansetron HCL 4 MG/2 ML VIAL IVPUSH ×2 (08:38→15:50)
--- NOTE | 2022-03-19 15:00 | HO.POSTANES ---
Post Anesthesia Evaluation Post Anesthesia Evaluation Vital Signs: Vital Signs Temp Pulse Resp BP Pulse Ox O2 Del Method 03/19/22 14:53 78 03/19/22 08:38 78 16 03/19/22 07:41 73 96 03/19/22 07:28 98.1 F 73 16 181/90 H 96 Room Air 03/19/22 03:07 98.3 F 66 16 156/85 H 96 Room Air Anesthesia: Spinal and Nerve Block Mental Status: Awake Pain Control: Satisfactory Nausea/Vomiting: None Hydration: Adequate Anesthesia-Related Issues: No Anes. Related Issues
--- NOTE | 2022-03-19 15:36 | MHC.CM.PN ---
[facility] IS ABLE TO OFFER HOME P.T.
[2022-03-19] MEDS: 0.9 % Sodium Chloride Flush 3 ML SYRINGE IVFLUSH ×2 (15:59→19:33)
[2022-03-19] MEDS: rOPINIRole HCL 1 MG TABLET PO (18:47)
[2022-03-19] MEDS: Losartan Potassium 50 MG TABLET PO (18:47)
[2022-03-19] MEDS: hydrALAZINE HCl 20 MG/ML VIAL 5 MG IVPUSH (19:32)
[2022-03-19] MEDS: amLODIPine Besylate 5 MG TABLET PO (21:15)
[2022-03-19] MEDS: hydrALAZINE HCl 20 MG/ML VIAL 10 MG IVPUSH (21:15)
[2022-03-19] MEDS: Prochlorperazine Edisylate 10 MG/2 ML VIAL 5 MG IVPUSH (22:42)
[2022-03-20] VITALS (12 sets, daily range): BP systolic 142–178; BP diastolic 82–100; PULSE 70–85; RESP 16–18; TEMP 36.7–36.9; O2SAT 93–97
[2022-03-20] MEDS: Nitroglycerin 0.1 MG PATCH.TD24 TRANSDERMA (00:29)
--- NOTE | 2022-03-20 02:40 | PC.NURSE ---
PULP OPERATOR notified me HTN crisis at 20:45 BP was 224/118, ortho [place] notified, ordered the hospitalists consult, Dr. Rahman notiffavio ordered Hydrazine 5mg IVPUSH given at 19:32, hour later rechecked BP 208/112, Dr Rahman ordered Amlodipine 5mg po, Hydrazine 10 mg IVpush. given at 21:15, rechecked at 22:15 bp 194/92, notified. at 00:00 bp 198/100, ordered nitroglycerin pad, given at 00:29. pt feels nauseous given med. pt states that her face is on fire, stomach is sick, and fatigue. I will recheck bp at 04:00 and monitor s/s. pt was request for the pure wick overnight, it is provided.
[2022-03-20 05:33] LABS: MANUAL DIFF FLAG NO
[2022-03-20 05:37] LABS: Basophils Percent Auto 0.2 % (0-2); Eosinophils Percent Auto 0.3 % (0-4); Hematocrit 35.8 % (37.0-47.0); Hemoglobin 12.2 g/dl (12.0-16.0); Imm Gran Abs Auto 0.02 X10*3/uL (0.00-0.03); Imm Gran Pct Auto 0.3 % (0.0-0.4); Lymphocytes Absolute Auto 0.7 X10*3/uL (1.2-4.9); Lymphocytes Percent Auto 10.6 % (20-40); Mean Corpuscular HGB Conc 34.1 g/dl (31.0-35.0); Monocytes Absolute Auto 0.7 X10*3/uL (0.1-1.2); Monocytes Percent Auto 11.6 % (2-11); Neutrophils Absolute Auto 4.7 x10*3/uL (2.0-8.3); Platelet Count 186 X10*3/uL (160-400); Red Blood Count 4.07 X10*6/uL (4.20-5.50); White Blood Count 6.1 X10*3/uL (4.8-10.8)
[2022-03-20] MEDS: Omeprazole 40 MG CAPSULE.DR PO (05:39)
[2022-03-20] MEDS: Levothyroxine Sodium 112 MCG, Levothyroxine Sodium 25 MCG 137 MCG PO (05:39)
--- NOTE | 2022-03-20 06:00 | PM.EVENT ---
Event Note Date of Service: 03/20/22 Event Note: a consult was placed on pt for management of HTN Pt was sleeping when i went to see her. she was noted to be sig hypertensive with no symptoms. She is s/p Left knee replacement Given hydralazine IV x2 and PO amlodipine with minimal improvement in bp. started on nitro paste with sig improvement in BP. High bp likely due to pain at this time her home bp meds have been resumed, will monitor bp before starting a new agnet Full consult to come Time Spent With Patient Time: Total time managing care of this patient today ____ minutes.
[2022-03-20 06:01] LABS: Anion Gap 10 (12-20); Blood Urea Nitrogen 9 mg/dL (9-16); Calcium 8.7 mg/dL (8.4-10.2); Carbon Dioxide 28 mmol/L (22-29); Chloride 101 mmol/L (96-108); Creatinine Clr Calc Pharmacy 70.4; Estimated Glomerular Filt Rate > 60; Glucose Fasting 136 mg/dL (60-99); Potassium 3.3 mmol/L (3.3-5.1); Sodium 136 mmol/L (135-145)
[2022-03-20] MEDS: Fluticasone Propionate 100 MCG BLST.W.DEV 1 PUFF INHALE ×2 (08:19→20:27)
--- NOTE | 2022-03-20 09:10 | P.PNOP_ITS ---
Subjective Subjective Date of Service: 03/20/22 Interval history: POD2 s/p LTKA. Overnight patient had a HTN crisis. Medicine was consulted stat and managing appropriatly. No additional complaints. Pain is well managed. Physical Exam Vital Signs: Vital Signs: Last Vital Signs Temp 98.1 F 03/20/22 07:32 Pulse 78 03/20/22 08:20 Resp 16 03/20/22 08:20 BP 145/82 H 03/20/22 07:55 Pulse Ox 93 03/20/22 07:55 O2 Del Method 03/20/22 07:32 BMI result Body Mass Index 29.1 Const: General: cooperative, healthy appearing and no acute distress Resp: Effort & Inspection: normal respiratory effort and able to speak in complete sentences Cardio: Rate: regular rate Peripheral pulses: Peripheral pulses 2+ throughout GI: Palpation (GI): Soft to palpation Skin: Lesions: no lesions Rashes: no rashes Extrem: Other: Left knee Incision is c/d/i. Joyce intact. New Aquacel dressing applied. Able to dorsiflex and plantarflex. NVI. Procedures Date of Service Date of Service: 03/20/22 Progress Note: A&P Assessment and plan (1) Status post total left knee replacement: Status: Acute Assessment and Plan: * Continue pain mgmnt * Continue Aspirin for dvt ppx * Continue PT for LT TKA * Dispo planning-PT, pain mgmnt Time Spent With Patient Time: Total time managing care of this patient today ____ minutes. Quality Stroke Does the patient have a stroke diagnosis?: No VTE Prior VTE?: No VTE Risk Level:: Surgical - very high VTE Device Contraindication: N/A - Device Ordered VTE Drug Contraindication: N/A - Med Ordered
[2022-03-20] MEDS: Sertraline HCL 100 MG TABLET PO (09:40)
[2022-03-20] MEDS: Aspirin 325 MG TABLET PO ×2 (09:40→20:34)
[2022-03-20] MEDS: rOPINIRole HCL 1 MG TABLET PO (09:40)
[2022-03-20] MEDS: Celecoxib 200 MG CAPSULE PO ×2 (09:41→20:34)
[2022-03-20] MEDS: Docusate Sodium 100 MG CAPSULE PO ×2 (09:41→20:34)
[2022-03-20] MEDS: oxyCODONE HCl ER 10 MG TAB.ER.12H PO ×2 (09:41→20:34)
[2022-03-20] MEDS: Amitriptyline HCl 10 MG TABLET PO (09:41)
[2022-03-20] MEDS: 0.9 % Sodium Chloride Flush 3 ML SYRINGE IVFLUSH ×3 (09:42→20:36)
[2022-03-20] MEDS: Hydroxychloroquine Sulfate 200 MG TABLET PO (09:42)
[2022-03-20] MEDS: Losartan Potassium 50 MG TABLET PO (09:50)
[2022-03-20] MEDS: oxyCODONE HCl Immed Release 5 MG TABLET PO (14:24)
[2022-03-20] MEDS: Acetaminophen 325 MG TABLET 650 MG PO (14:25)
--- NOTE | 2022-03-20 14:49 | HO.PM.IMPN ---
Subjective Subjective Date of Service: 03/20/22 Interval History: seen and examined this morning follow up for elevated bp having left knee pain, but improved from overnight No shortness of breath, chest pain, blurry vision Review of Systems Review of Systems: Yes all other systems are reviewed and are negative Constitutional Constitutional: Denies chills and Denies fever(s) ENT Ears, Nose, Mouth, and Throat: Denies dizziness Cardiovascular Cardiovascular: Denies chest pain, Denies palpitations and Denies dyspnea Respiratory Respiratory: Denies cough and Denies dyspnea Gastrointestinal Gastrointestinal: Denies abdominal pain Neurologic Neurologic: Denies dizziness Endocrine Endocrine: Denies palpitations Physical Exam Vital Signs: Vital Signs: Last Vital Signs Temp 98.1 F 03/20/22 07:32 Pulse 76 03/20/22 13:55 Resp 16 03/20/22 08:20 BP 151/84 H 03/20/22 13:55 Pulse Ox 93 03/20/22 07:55 O2 Del Method 03/20/22 07:32 BMI result Body Mass Index 29.1 Const: General: no acute distress, alert and awake Nutritional Appearance: average body habitus Orientation/consciousness: patient oriented x3 Resp: Effort & Inspection: normal respiratory effort and able to speak in complete sentences Auscultation: clear to auscultation bilaterally Cardio: Rate: regular rate Heart sounds: S1 normal heart sound present and S2 normal heart sound present GI: Inspection: No distended Palpation (GI): Soft to palpation Neuro: General: patient oriented x3 and CN's II-XI intact bilaterally Extrem: Other: left knee swelling; bandage c/d/i, no staining Objective Data Active Medications Acetaminophen (Acetaminophen 325 Mg Tablet) 650 mg PO Q6H PRN PRN Reason: Pain, Mild (Pain Scale 1-3) Last Admin: 03/20/22 14:25 Dose: 650 mg Documented By: MARIYA Albuterol Sulfate (Albuterol Sulfate 90 Mcg 8 Gm Inhaler) 2 puff INHALE Q4H PRN PRN Reason: Wheezing Amitriptyline HCl (Amitriptyline Hcl 10 Mg Tablet) 10 mg PO DAILY [facility] Last Admin: 03/20/22 09:41 Dose: 10 mg Documented By: MARIYA Aspirin (Aspirin 325 Mg Tablet) 325 mg PO BID [facility] Last Admin: 03/20/22 09:40 Dose: 325 mg Documented By: MARIYA Celecoxib (Celecoxib 200 Mg Capsule) 200 mg PO BID [facility] Last Admin: 03/20/22 09:41 Dose: 200 mg Documented By: MARIYA Docusate Sodium (Docusate Sodium 100 Mg Capsule) 100 mg PO BID [facility] Last Admin: 03/20/22 09:41 Dose: 100 mg Documented By: MARIYA Fluticasone Propionate (Fluticasone Propionate 100 Mcg Blst.W.Dev) 1 puff INHALE RBID [facility] Last Admin: 03/20/22 08:19 Dose: 1 puff Documented By: BRADEN Hydromorphone HCl (Hydromorphone Hcl 0.5 Mg/0.5 Ml Syringe) 0.25 mg IVPUSH Q4H PRN; Protocol PRN Reason: Pain, Severe (Pain Scale 7-10) Last Admin: 03/19/22 15:50 Dose: 0.25 mg Documented By: MEKHI Hydroxychloroquine Sulfate (Hydroxychloroquine Sulfate 200 Mg Tablet) 200 mg PO DAILY [facility] Last Admin: 03/20/22 09:42 Dose: 200 mg Documented By: MARIYA Levothyroxine Sodium 112 mcg/ (Levothyroxine Sodium 25 mcg) 137 mcg PO DAILY@0600 [facility] Last Admin: 03/20/22 05:39 Dose: 137 mcg Documented By: SCOUT Losartan Potassium (Losartan Potassium 50 Mg Tablet) 50 mg PO DAILY [facility]; Protocol Last Admin: 03/20/22 09:50 Dose: 50 mg Documented By: MARIYA Omeprazole (Omeprazole 40 Mg Capsule.) 40 mg PO DAILY@0630 [facility] Last Admin: 03/20/22 05:39 Dose: 40 mg Documented By: SCOUT Ondansetron HCl (Ondansetron Hcl 4 Mg/2 Ml Vial) 4 mg IVPUSH Q8H PRN PRN Reason: Nausea and Vomiting Last Admin: 03/19/22 15:50 Dose: 4 mg Documented By: MEKHI Oxycodone HCl (Oxycodone Hcl Immed Release 5 Mg Tablet) 5 mg PO Q4H PRN PRN Reason: Pain, Moderate (Pain Scale 4-6 Last Admin: 03/20/22 14:24 Dose: 5 mg Documented By: MARIYA Oxycodone HCl (Oxycodone Hcl Er 10 Mg Tab.Er.12h) 10 mg PO BID [facility] Last Admin: 03/20/22 09:41 Dose: 10 mg Documented By: MARIYA Potassium Chloride (Potassium Chloride Er 10 Meq Capsule.Er) 20 meq PO DAILY [facility] Last Admin: 03/20/22 09:40 Dose: 20 meq Documented By: MARIYA Ropinirole HCl (Ropinirole Hcl 1 Mg Tablet) 1 mg PO DAILY [facility] Last Admin: 03/20/22 09:40 Dose: 1 mg Documented By: MARIYA Sertraline HCl (Sertraline Hcl 100 Mg Tablet) 100 mg PO DAILY [facility] Last Admin: 03/20/22 09:40 Dose: 100 mg Documented By: MARIYA Sodium Chloride (0.9 % Sodium Chloride Flush 3 Ml Syringe) 3 ml IVFLUSH QSHIFT [facility] Last Admin: 03/20/22 09:42 Dose: 3 ml Documented By: MARIYA Labs 03/20/22 05:21 03/20/22 05:21 Labs: Laboratory Results - last 24 hr 03/20/22 03/20/22 05:21 05:21 MCV 88.0 MCH 30.0 MCHC 34.1 RDW 13.0 Plt Count 186 MPV 9.0 L Immature Gran % (Auto) 0.3 Neut % (Auto) 77.0 H Lymph % (Auto) 10.6 L [place] % (Auto) 11.6 H Eos % (Auto) 0.3 Baso % (Auto) 0.2 Lymph # (Auto) 0.7 L [place] # (Auto) 0.7 Eos # (Auto) 0.0 Baso # (Auto) 0.0 Abs Immat Gran (auto) 0.02 Absolute Neuts (auto) 4.7 Absolute Nucleated RBC 0.000 Nucleated RBC % (auto) 0.0 Anion Gap 10 L Estim Creat Clear Calc 70.4 Estimated GFR > 60 Fasting Glucose 136 H Calcium 8.7 Assessment and Plan (1) Hypertension: Status: Acute Plan this is a 66-year-old female with history of hypertension who presented for elective left knee arthroplasty found to have significantly elevated blood pressure overnight hypertension Received hydralazine, Norvasc, nitro paste overnight am blood pressure improved d/c nitro paste continue home losartan adequate pain control POD #2 s/p LTKA management per ortho team hypothyroidism Continue Synthroid DVT prophylaxis- b.i.d. aspirin per Orthopedic Service attending - dr. sofia Time Spent With Patient Time: Total time managing care of this patient today ____ minutes. Quality Stroke Does the patient have a stroke diagnosis?: No VTE Prior VTE?: No VTE Risk Level:: Surgical - very high VTE Device Contraindication: N/A - Device Ordered VTE Drug Contraindication: N/A - Med Ordered
[2022-03-20] MEDS: amLODIPine Besylate 5 MG TABLET PO (17:04)
--- NOTE | 2022-03-20 18:43 | PC.NURSE ---
Pt alert and oriented x4. C/O 4- pain to the left knee especially after PT. BP improved this am between 8-12pm but elevated again in the afternoon BP agin. Given Amlodipine.
[2022-03-21 00:11] VITALS: BP 125/68; PULSE 69; RESP 18; TEMP 36.6; O2SAT 96
[2022-03-21 03:24] VITALS: BP 120/63; PULSE 62; RESP 16; TEMP 37; O2SAT 96
[2022-03-21] MEDS: Omeprazole 40 MG CAPSULE.DR PO (05:24)
[2022-03-21] MEDS: Levothyroxine Sodium 112 MCG, Levothyroxine Sodium 25 MCG 137 MCG PO (05:24)
[2022-03-21 06:09] LABS: MANUAL DIFF FLAG NO
[2022-03-21 06:13] LABS: Basophils Percent Auto 0.4 % (0-2); Eosinophils Absolute Auto 0.1 X10*3/uL (0.0-0.4); Eosinophils Percent Auto 1.2 % (0-4); Hematocrit 32.5 % (37.0-47.0); Hemoglobin 10.6 g/dl (12.0-16.0); Imm Gran Abs Auto 0.02 X10*3/uL (0.00-0.03); Imm Gran Pct Auto 0.4 % (0.0-0.4); Lymphocytes Absolute Auto 0.9 X10*3/uL (1.2-4.9); Lymphocytes Percent Auto 19.1 % (20-40); Mean Corpuscular HGB Conc 32.6 g/dl (31.0-35.0); Mean Corpuscular Hemoglobin 29.9 pg (27.0-33.0); Mean Corpuscular Volume 91.5 fL (80.0-98.0); Mean Platelet Volume 9.6 fL (9.4-12.3); Monocytes Absolute Auto 0.6 X10*3/uL (0.1-1.2); Monocytes Percent Auto 12.7 % (2-11); Neutrophils Absolute Auto 3.2 x10*3/uL (2.0-8.3); Neutrophils Percent Auto 66.2 % (45-73); Platelet Count 202 X10*3/uL (160-400); Red Blood Count 3.55 X10*6/uL (4.20-5.50); Red Cell Distribution Width 13.1 % (11.0-16.0); White Blood Count 4.9 X10*3/uL (4.8-10.8)
[2022-03-21 06:46] LABS: Anion Gap 15 (12-20); Blood Urea Nitrogen 16 mg/dL (9-16); Calcium 8.8 mg/dL (8.4-10.2); Carbon Dioxide 27 mmol/L (22-29); Chloride 105 mmol/L (96-108); Estimated Glomerular Filt Rate > 60; Glucose Fasting 113 mg/dL (60-99); Potassium 4.6 mmol/L (3.3-5.1); Sodium 142 mmol/L (135-145)
[2022-03-21] MEDS: amLODIPine Besylate 5 MG TABLET PO (07:22)
[2022-03-21] MEDS: 0.9 % Sodium Chloride Flush 3 ML SYRINGE IVFLUSH (07:22)
[2022-03-21] MEDS: oxyCODONE HCl ER 10 MG TAB.ER.12H PO (07:22)
[2022-03-21] MEDS: Aspirin 325 MG TABLET PO (07:23)
[2022-03-21] MEDS: Amitriptyline HCl 10 MG TABLET PO (07:25)
[2022-03-21] MEDS: Celecoxib 200 MG CAPSULE PO (07:25)
[2022-03-21] MEDS: oxyCODONE HCl Immed Release 5 MG TABLET PO (07:25)
[2022-03-21] MEDS: Losartan Potassium 50 MG TABLET PO (07:25)
[2022-03-21] MEDS: Hydroxychloroquine Sulfate 200 MG TABLET PO (07:26)
[2022-03-21] MEDS: Sertraline HCL 100 MG TABLET PO (07:26)
[2022-03-21] MEDS: Docusate Sodium 100 MG CAPSULE PO (07:26)
[2022-03-21] MEDS: rOPINIRole HCL 1 MG TABLET PO (07:26)
[2022-03-21 08:00] VITALS: BP 113/58; PULSE 76; RESP 16; TEMP 36.5; O2SAT 94
[2022-03-21 08:06] VITALS: BP 120/63; PULSE 62; O2SAT 96
--- NOTE | 2022-03-21 08:17 | PM.DS ---
DS: Providers Provider Date of Service: 03/21/22 Date of admission: 03/18/22 07:08 Primary care physician: Martine Song MD Consults: 03/19/22 19:22 Consult to Hospitalist Stat Consulting Provider: Hospitalist Reason For Exam: HTN 204/102 DS: Diagnosis Discharge Diagnosis (1) Hypertension: Status: Acute DS: Summary Hospital Course Hospital Course: The patient underwent a successful left total knee arthroplasty, they were transferred to PACU and then to the floor to recover. During their stay, their vitals were stable, afebrile at 98.6. Labs were unremarkable, H/H 10.6/32.5. POD 1 they were started on Aspirin 325mg po bid for DVT ppx, they also received Physical Therapy services twice a day. Prior to discharge, their dressing was changed, incision clean dry and intact, new Aquacel dressing applied and the plan was to be discharged home with VNA services. Time Spent with Patient Time attestation: Total time managing care of this patient today ____ minutes. Discharge coordination time: Less than 30 minutes Quality: Safe Use of Opioids Does Pt have an Active Cancer Diagnosis on the Problem List?: No Quality: Stroke Does the patient have a stroke diagnosis?: No Physical Exam Vital Signs: Vital Signs: Last Vital Signs Temp 97.7 F 03/21/22 08:00 Pulse 62 03/21/22 08:06 Resp 16 03/21/22 08:00 BP 120/63 03/21/22 08:06 Pulse Ox 96 03/21/22 08:06 O2 Del Method 03/21/22 08:00 BMI result Body Mass Index 29.1 Const: General: cooperative, healthy appearing and no acute distress Resp: Effort & Inspection: normal respiratory effort and able to speak in complete sentences Cardio: Rate: regular rate Peripheral pulses: Peripheral pulses 2+ throughout GI: Palpation (GI): Soft to palpation Skin: Lesions: no lesions Rashes: no rashes Extrem: Other: Left knee Incision is c/d/i. Joyce intact. New Aquacel dressing applied. Able to dorsiflex and plantarflex. NVI. DS: Data Data Completed and Pending Completed studies during hospitalization [Text1]: Pending at discharge 03/18/22 10:48 Surgical [PTH] Routine Labs on day of discharge: Laboratory Results - last 24 hr 03/21/22 03/21/22 05:24 05:24 WBC 4.9 RBC 3.55 L Hgb 10.6 L Hct 32.5 L MCV 91.5 MCH 29.9 MCHC 32.6 RDW 13.1 Plt Count 202 MPV 9.6 Immature Gran % (Auto) 0.4 Neut % (Auto) 66.2 Lymph % (Auto) 19.1 L [place] % (Auto) 12.7 H Eos % (Auto) 1.2 Baso % (Auto) 0.4 Lymph # (Auto) 0.9 L [place] # (Auto) 0.6 Eos # (Auto) 0.1 Baso # (Auto) 0.0 Abs Immat Gran (auto) 0.02 Absolute Neuts (auto) 3.2 Absolute Nucleated RBC 0.000 Nucleated RBC % (auto) 0.0 Sodium 142 Potassium 4.6 D Chloride 105 Carbon Dioxide 27 Anion Gap 15 BUN 16 Creatinine 0.80 Estim Creat Clear Calc 74.0 Estimated GFR > 60 Fasting Glucose 113 H Calcium 8.8 Discharge Plan Discharge Anticipated Discharge Date/Time: 03/21/22 13:00 Patient Disposition: Home Health Service Discharge Diagnosis: s/p LT TKA Referrals: Martine Song MD [Primary Care Provider] - 1 Week Melissa Stubbs PA-C [Physician Venue Attendant] - 2 Weeks (04/03/22 1:00 [facility] [place] [place] [facility] Melissa Stubbs PA-C) Discharge Medications: New celecoxib 200 mg Capsule 200 mg PO BID 30 Days Qty: 60 0RF acetaminophen 325 mg Tablet 650 mg PO Q6H PRN (Reason: Pain, Mild (Pain Scale 1-3)) 30 Days Qty: 240 0RF aspirin 325 mg Tablet 325 mg PO BID 42 Days Qty: 84 0RF docusate sodium 100 mg Capsule 100 mg PO BID 30 Days Qty: 60 0RF oxycodone 5 mg Tablet 5 mg PO Q4H PRN (Reason: Pain, Moderate (Pain Scale 4-6) 7 Days Qty: 42 0RF Rx Instructions: Partial Fill upon patient request. Continued One Daily Complete Tablet 1 tab PO DAILY fluticasone propionate 110 mcg/actuation Hfa Aerosol Inhaler 1 puff INHALATION BID omeprazole 40 mg capsule,delayed release(DR/EC) 1 cap PO DAILY@0630 hydroxychloroquine 200 mg tablet 200 mg PO DAILY amitriptyline 10 mg tablet 10 mg PO DAILY levothyroxine 137 mcg tablet 137 mcg PO DAILY sertraline 100 mg tablet 100 mg PO DAILY ropinirole 1 mg tablet 1 mg PO DAILY losartan 50 mg tablet 50 mg PO DAILY potassium chloride 10 mEq capsule, extended release 20 meq PO DAILY albuterol sulfate [ProAir HFA] 90 mcg/actuation HFA aerosol inhaler 2 puff inhalation Q4-6H PRN (Reason: Wheezing) Discontinued aspirin 81 mg Tablet,Chewable 81 mg PO DAILY meloxicam 15 mg tablet 15 mg PO DAILY Discharge Orders: Discharge Order (Routine); Ordered 03/21/22 Ordered By: Mhiaela Philip Diet: Regular diet Activity on Discharge: Use cane or walker Stand Alone Forms: Patient Portal Discharge page Care Plan Goals: Restore function of joint Health Concerns: monitor BP Plan of Treatment: Physical Therapy Pain management DVT prophylaxis Assessment: Physical Therapy for Total knee arthroplasty: WBAT, gait training, ROM 0-12, quad strength Limit stair climbing No showering, no tub bath-keep dressing clean, dry and intact No driving x6 weeks Continue Aspirin twice a day x 6 weeks Follow up with [facility] [place] [place] Orthopedics in 2 weeks: 04/03/2312:00 [facility] [place] [place] [facility] SurgeonsMelissa Stubbs PA-C --you will also have your first out patient PT edy on the day of your post op appt-so please plan on being in the office that day for an extended period of time.
--- NOTE | 2022-03-21 08:18 | P.F2F_ITS ---
Service Date Service Date: 03/21/22 Encounter Date of encounter: 03/21/22 Reasons for Services Signs and symptoms assessed: s/p LTKA. Pt. is considered homebound due to recent surgery. Unable to drive, poor balance, poor gait mechanics. Reason for physical therapy: home safety and mobility, therapeutic exercises, restore joint function, gait/transfer training, assess need for DME and ADL training Homebound: Leaving the home is medically contraindicated at this time without the asist of a device and/or another person due th the listed conditions above and below. Reason homebound: unsteady gait / fall risk, leg weakness, pain with ambulation, pain with transfers, poor balance / fall risk and unable to drive Homebound supporting statement: Pt. is considered homebound due to recent surgery. Unable to drive, poor balance, poor gait mechanics. Certification: Based on the above findings, I certify that this patient is confined to the home and needs intermittent penitentiary care, physical therapy and/or speech therapy, or continues to need occupational therapy. The patient is under my care, and I have initiated the establishment of the plan of care. The patient will be followed by a physician who will periodically review the plan of care. Time Spent With Patient Time: Total time managing care of this patient today ____ minutes.
[2022-03-21 08:53] VITALS: PULSE 76; RESP 16; O2SAT 95
[2022-03-21] MEDS: Fluticasone Propionate 100 MCG BLST.W.DEV 1 PUFF INHALE (08:53)
[2022-03-21 10:15] VITALS: PULSE 76
--- NOTE | 2022-03-21 10:41 | P.PNIM_ITS ---
Subjective Subjective Date of Service: 03/21/22 Interval History: seen and examined this morning follow up for elevated bp feeling better, no sob, chest pain, blurry vision Review of Systems Review of Systems: Yes all other systems are reviewed and are negative Constitutional Constitutional: Denies chills and Denies fever(s) Cardiovascular Cardiovascular: Denies chest pain, Denies palpitations and Denies dyspnea Respiratory Respiratory: Denies cough and Denies dyspnea Gastrointestinal Gastrointestinal: Denies abdominal pain, Denies nausea and Denies vomiting Endocrine Endocrine: Denies palpitations Physical Exam Vital Signs: Vital Signs: Last Vital Signs Temp 97.7 F 03/21/22 08:00 Pulse 76 03/21/22 10:15 Resp 16 03/21/22 08:53 BP 120/63 03/21/22 08:06 Pulse Ox 96 03/21/22 08:06 O2 Del Method 03/21/22 08:00 BMI result Body Mass Index 29.1 Const: General: no acute distress, alert and awake Nutritional Appearance: average body habitus Orientation/consciousness: patient oriented x3 Resp: Effort & Inspection: normal respiratory effort and able to speak in complete sentences Auscultation: clear to auscultation bilaterally Cardio: Rate: regular rate Heart sounds: S1 normal heart sound present and S2 normal heart sound present GI: Inspection: No distended Palpation (GI): Soft to palpation Neuro: General: patient oriented x3 and CN's II-XI intact bilaterally Extrem: Other: left knee swelling; bandage c/d/i, no staining Objective Data Active Medications Acetaminophen (Acetaminophen 325 Mg Tablet) 650 mg PO Q6H PRN PRN Reason: Pain, Mild (Pain Scale 1-3) Last Admin: 03/20/22 14:25 Dose: 650 mg Documented By: MARIYA Albuterol Sulfate (Albuterol Sulfate 90 Mcg 8 Gm Inhaler) 2 puff INHALE Q4H PRN PRN Reason: Wheezing Amitriptyline HCl (Amitriptyline Hcl 10 Mg Tablet) 10 mg PO DAILY [facility] [place] Last Admin: 03/21/22 07:25 Dose: 10 mg Documented By: EVELYN Amlodipine Besylate (Amlodipine Besylate 5 Mg Tablet) 5 mg PO DAILY [facility] [place]; Protocol Last Admin: 03/21/22 07:22 Dose: 5 mg Documented By: EVELYN Aspirin (Aspirin 325 Mg Tablet) 325 mg PO BID [facility] [place] Last Admin: 03/21/22 07:23 Dose: 325 mg Documented By: EVELYN Celecoxib (Celecoxib 200 Mg Capsule) 200 mg PO BID [facility] [place] Last Admin: 03/21/22 07:25 Dose: 200 mg Documented By: EVELYN Docusate Sodium (Docusate Sodium 100 Mg Capsule) 100 mg PO BID [facility] [place] Last Admin: 03/21/22 07:26 Dose: 100 mg Documented By: EVELYN Fluticasone Propionate (Fluticasone Propionate 100 Mcg Blst.W.Dev) 1 puff INHALE RBID [facility] [place] Last Admin: 03/21/22 08:53 Dose: 1 puff Documented By: BRADEN Hydromorphone HCl (Hydromorphone Hcl 0.5 Mg/0.5 Ml Syringe) 0.25 mg IVPUSH Q4H PRN; Protocol PRN Reason: Pain, Severe (Pain Scale 7-10) Last Admin: 03/19/22 15:50 Dose: 0.25 mg Documented By: MEKHI Hydroxychloroquine Sulfate (Hydroxychloroquine Sulfate 200 Mg Tablet) 200 mg PO DAILY [facility] [place] Last Admin: 03/21/22 07:26 Dose: 200 mg Documented By: EVELYN Levothyroxine Sodium 112 mcg/ (Levothyroxine Sodium 25 mcg) 137 mcg PO DAILY@0600 [facility] [place] Last Admin: 03/21/22 05:24 Dose: 137 mcg Documented By: SCOUT Losartan Potassium (Losartan Potassium 50 Mg Tablet) 50 mg PO DAILY [facility] [place]; Protocol Last Admin: 03/21/22 07:25 Dose: 50 mg Documented By: EVELYN Omeprazole (Omeprazole 40 Mg Capsule.Dr) 40 mg PO DAILY@0630 [facility] [place] Last Admin: 03/21/22 05:24 Dose: 40 mg Documented By: SCOUT Ondansetron HCl (Ondansetron Hcl 4 Mg/2 Ml Vial) 4 mg IVPUSH Q8H PRN PRN Reason: Nausea and Vomiting Last Admin: 03/19/22 15:50 Dose: 4 mg Documented By: MEKHI Oxycodone HCl (Oxycodone Hcl Immed Release 5 Mg Tablet) 5 mg PO Q4H PRN PRN Reason: Pain, Moderate (Pain Scale 4-6 Last Admin: 03/21/22 07:25 Dose: 5 mg Documented By: EVELYN Oxycodone HCl (Oxycodone Hcl Er 10 Mg Tab.Er.12h) 10 mg PO BID [facility] [place] Last Admin: 03/21/22 07:22 Dose: 10 mg Documented By: EVELYN Potassium Chloride (Potassium Chloride Er 10 Meq Capsule.Er) 20 meq PO DAILY [facility] [place] Last Admin: 03/21/22 07:22 Dose: 20 meq Documented By: EVELYN Ropinirole HCl (Ropinirole Hcl 1 Mg Tablet) 1 mg PO DAILY [facility] [place] Last Admin: 03/21/22 07:26 Dose: 1 mg Documented By: EVELYN Sertraline HCl (Sertraline Hcl 100 Mg Tablet) 100 mg PO DAILY [facility] [place] Last Admin: 03/21/22 07:26 Dose: 100 mg Documented By: EVELYN Sodium Chloride (0.9 % Sodium Chloride Flush 3 Ml Syringe) 3 ml IVFLUSH QSHIFT [facility] [place] Last Admin: 03/21/22 07:22 Dose: 3 ml Documented By: EVELYN Labs 03/21/22 05:24 03/21/22 05:24 Labs: Laboratory Results - last 24 hr 03/21/22 03/21/22 05:24 05:24 MCV 91.5 MCH 29.9 MCHC 32.6 RDW 13.1 Plt Count 202 MPV 9.6 Immature Gran % (Auto) 0.4 Neut % (Auto) 66.2 Lymph % (Auto) 19.1 L [place] % (Auto) 12.7 H Eos % (Auto) 1.2 Baso % (Auto) 0.4 Lymph # (Auto) 0.9 L [place] # (Auto) 0.6 Eos # (Auto) 0.1 Baso # (Auto) 0.0 Abs Immat Gran (auto) 0.02 Absolute Neuts (auto) 3.2 Absolute Nucleated RBC 0.000 Nucleated RBC % (auto) 0.0 Anion Gap 15 Estim Creat Clear Calc 74.0 Estimated GFR > 60 Fasting Glucose 113 H Calcium 8.8 Assessment and Plan (1) Hypertension: Status: Acute Plan this is a 66-year-old female with history of hypertension who presented for elective left knee arthroplasty found to have significantly elevated blood pressure overnight hypertension Received hydralazine, Norvasc, nitro paste overnight am blood pressure improved d/c nitro paste continue home losartan norvasc 5 mg added for adequate bp control POD #3 s/p LTKA management per ortho team hypothyroidism Continue Synthroid DVT prophylaxis- b.i.d. aspirin per Orthopedic Service attending - dr. sofia Time Spent With Patient Time: Total time managing care of this patient today ____ minutes. Quality Stroke Does the patient have a stroke diagnosis?: No VTE Prior VTE?: No VTE Risk Level:: Surgical - very high VTE Device Contraindication: N/A - Device Ordered VTE Drug Contraindication: N/A - Med Ordered
--- NOTE | 2022-03-21 10:56 | MHC.CM.PN ---
PT WILL DC HOME TODAY WITH [facility] FOR PT SHE REPORTS HER AND SON WILL ASSIST HER WITH GETTING INTO HER HOME WILL TRANSPORT [facility] NOTIFIED OF DC, SUMMARY AND F2F SENT VIA [employer]
== END 2022-03-21 12:12 | disposition home health service (06) | DRG 326 ==
LOC: HO.SSSA 07:12 → HO.S3 15:02
PROVIDERS: Physician Assistant; Admitting Provider Orthopaedic Surgery; PCP Internal Medicine; Visit Provider Orthopaedic Surgery
PROC: 0SRD0JA Replacement of Left Knee Joint with Synthetic Substitute, Uncemented, Open Approach (ICD-10-PCS; CPT 27447; principal; 2022-03-18 09:40)
DX: M17.12 Unilateral primary osteoarthritis, left knee (principal); M32.9 Systemic lupus erythematosus, unspecified; E03.9 Hypothyroidism, unspecified; K21.9 Gastro-esophageal reflux disease without esophagitis; I10 Essential (primary) hypertension; I16.9 Hypertensive crisis, unspecified; Z20.822 Contact with and (suspected) exposure to COVID-19; Z87.891 Personal history of nicotine dependence; Z88.0 Allergy status to penicillin; Z79.82 Long term (current) use of aspirin; Z79.51 Long term (current) use of inhaled steroids; Z79.890 Hormone replacement therapy; Z79.899 Other long term (current) drug therapy
CPT/HCPCS: 36415; 73560; 80048; 85014; 85018; 85025; 86850; 86900; 86901; 87635; 87640; 87641; 88305; 88311; 94640; 97110; 97116; 97162; 97530; C1776; J0690; J1170; J1885; J2405; J2795

== ENCOUNTER → 2022-04-03 13:09 | Outpatient (BNVA) | payer MEDICAID, SELFPAY | PROVIDERS: PCP Internal Medicine; Visit Provider Physician Assistant | DX: Z13.89 Encounter for screening for other disorder (principal) ==

== ENCOUNTER → 2022-05-08 11:37 | Outpatient (BNVA) | payer MEDICAID, SELFPAY | PROVIDERS: PCP Internal Medicine; Visit Provider Physician Assistant | DX: Z13.89 Encounter for screening for other disorder (principal) ==

== ENCOUNTER 2022-06-12 09:02 | Outpatient (REF) | payer MEDICAID, SELFPAY ==
--- NOTE | ~2022-06-12 | XR_ITS ---
EXAMINATION: XR KNEES, STANDING AP BILATERAL XR KNEE, LEFT CLINICAL INFORMATION: Knee pain COMPARISON: Standing AP knees and left knee radiographs 11/25/2021, left knee radiographs 03/18/2022. TECHNIQUE: Bilateral standing AP view of the knees is performed. Left knee is also imaged in lateral and axial patella views. FINDINGS: Right: Mild narrowing medial compartment with marginal osteophytes medial femoral condyle and tibial plateau. No erosive change or chondrocalcinosis. No destructive process. Left: Prior total knee arthroplasty. Hardware intact. No osteolysis or destructive process or periostitis. There is a moderate to suprapatellar effusion. There is edema in region of Hoffa's fat pad. Spurring at the quadriceps insertion patella again noted. No lateralization patella. XR/XR knee LT 2V IMPRESSION: Right: -Mild narrowing medial compartment. No erosive change. Left: -Prior total knee arthroplasty. Hardware intact. No osteolysis. -Moderate to large suprapatellar effusion. Edema in region of Hoffa's fat pad.
--- NOTE | ~2022-06-12 | XR_ITS ---
EXAMINATION: XR KNEES, STANDING AP BILATERAL XR KNEE, LEFT CLINICAL INFORMATION: Knee pain COMPARISON: Standing AP knees and left knee radiographs 11/25/2021, left knee radiographs 03/18/2022. TECHNIQUE: Bilateral standing AP view of the knees is performed. Left knee is also imaged in lateral and axial patella views. FINDINGS: Right: Mild narrowing medial compartment with marginal osteophytes medial femoral condyle and tibial plateau. No erosive change or chondrocalcinosis. No destructive process. Left: Prior total knee arthroplasty. Hardware intact. No osteolysis or destructive process or periostitis. There is a moderate to suprapatellar effusion. There is edema in region of Hoffa's fat pad. Spurring at the quadriceps insertion patella again noted. No lateralization patella. XR/XR knee standing BI IMPRESSION: Right: -Mild narrowing medial compartment. No erosive change. Left: -Prior total knee arthroplasty. Hardware intact. No osteolysis. -Moderate to large suprapatellar effusion. Edema in region of Hoffa's fat pad.
== END 2022-06-12 09:03 | disposition home or self-care (01) ==
LOC: HO.HOSX 09:02
PROVIDERS: Visit Provider Orthopaedic Surgery
DX: Z47.1 Aftercare following joint replacement surgery (principal); Z96.652 Presence of left artificial knee joint; M17.11 Unilateral primary osteoarthritis, right knee
CPT/HCPCS: 73560; 73565

== ENCOUNTER 2022-07-07 12:02 | Outpatient (REF) | payer MEDICAID, SELFPAY ==
--- NOTE | ~2022-07-07 | XR_ITS ---
EXAMINATION: XR KNEE, RIGHT XR KNEE AP STANDING CLINICAL INFORMATION: Pain. COMPARISON: Radiographs dated 06/12/2022. TECHNIQUE: Lateral and axial views of the right knee are submitted. AP bilateral standing view of the knees was obtained. FINDINGS: Bony alignment and mineralization are normal. The lateral, medial and patellofemoral joint space compartments of the right knee are well-maintained. There is mild peripheral osteophyte formation of the medial and patellofemoral joint space compartments. No fracture, dislocation or significant joint effusion is noted. There is an intact left knee total arthroplasty, without hardware failure or loosening noted. No significant varus or valgus configuration is noted bilaterally. XR/XR knee standing BI IMPRESSION: 1. There is mild osteoarthritic change of the medial and patellofemoral joint space compartments of the right knee. 2. There is an intact left knee total arthroplasty. 3. No significant varus or valgus configuration is noted bilaterally.
--- NOTE | ~2022-07-07 | XR_ITS ---
EXAMINATION: XR KNEE, RIGHT XR KNEE AP STANDING CLINICAL INFORMATION: Pain. COMPARISON: Radiographs dated 06/12/2022. TECHNIQUE: Lateral and axial views of the right knee are submitted. AP bilateral standing view of the knees was obtained. FINDINGS: Bony alignment and mineralization are normal. The lateral, medial and patellofemoral joint space compartments of the right knee are well-maintained. There is mild peripheral osteophyte formation of the medial and patellofemoral joint space compartments. No fracture, dislocation or significant joint effusion is noted. There is an intact left knee total arthroplasty, without hardware failure or loosening noted. No significant varus or valgus configuration is noted bilaterally. XR/XR knee RT 2V IMPRESSION: 1. There is mild osteoarthritic change of the medial and patellofemoral joint space compartments of the right knee. 2. There is an intact left knee total arthroplasty. 3. No significant varus or valgus configuration is noted bilaterally.
== END 2022-07-07 12:03 | disposition home or self-care (01) ==
LOC: HO.HOSX 12:02
PROVIDERS: Visit Provider Orthopaedic Surgery
DX: M17.11 Unilateral primary osteoarthritis, right knee (principal); Z96.652 Presence of left artificial knee joint
CPT/HCPCS: 20610; 73560; 73565; 99212; J1100